=== PATIENT | female | born 1995 | race Caucasian/White ===

== ENCOUNTER → 2021-01-08 14:59 | Outpatient (CLI) | payer BC, SELFPAY ==
--- NOTE | ~2021-01-08 | US_ITS ---
EXAMINATION: US OB <= 14 weeks fetus DATE: 01/08/2021 15:19 INDICATION: Uncertain dates. TECHNIQUE: Real-time transabdominal pelvic ultrasound was performed. COMPARISON: None. FINDINGS: The uterus measures 9.3 x 5.6 x 8.5 cm. There is an intrauterine gestational sac. The placenta is po sterior. There is a single fetus in breech presentation. The crown rump length measures 6.6 cm, which correlates with an estimated gestational age of 12 weeks and 6 day(s) (+/-) 1 week(s) and 1 da y(s). heart motion is identified measuring 157 beats per minute (bpm) by M-mode Doppler. The ov lima are not visualized. There is no free fluid in the pelvis. IMPRESSION: 1. Single living intrauterine gestation with estimated date of delivery of 07/17/2021. Reviewed, dictated and finalized at location A. LFISH GROWER IMPRESSION: 1. Single living intrauterine gestation with estimated date of delivery of 06/21.
== END ==
PROVIDERS: Visit Provider Obstetrics & Gynecology
DX: Z36.9 Encounter for antenatal screening, unspecified (principal); Z3A.00 Weeks of gestation of pregnancy not specified
CPT/HCPCS: 76801

== ENCOUNTER → 2021-02-15 12:54 | Outpatient (CLI) | payer BC, SELFPAY ==
--- NOTE | ~2021-02-15 | US_ITS ---
EXAMINATION: US OB /maternal detail EXAM DATE: 02/15/2021 13:29 INDICATION: Z34.90 - Encounter for supervision of normal . Anatomy scan. 2nd trimester. TECHNIQUE: Pelvic obstetrical transabdominal sonogram was performed by a technologist. There are mu ltiple grayscale and Doppler images available for interpretation. Comparison is made to prior examina tion from 01/08/2021. FINDINGS: There is a single fetus identified in vertex presentation with a heart rate of 136 beats pe r minute. The placenta is located in the posterior position. There is no sonographic evidence of ret roplacental hemorrhage identified. Placental margin to internal cervical os distance is 6.5 cm. BIOMETRIC DATA: Biparietal diameter (BPD): 3.9 cm ----------------> 18 weeks 0 days. Head circumference (HC): 15.6 cm ----------------> 18 weeks 4 days. Abdominal circumference (AC): 13.1 cm ----------> 18 weeks 5 days. Femur length (FL): 2.6 cm --------------------------> 17 weeks 6 days. These measurements are concordant. HC/AC ratio is 1.19 (The 5th -- 95th percentile range is 1.08-1.27. Estimated weight is 233 g +/- 35 g. This is the 46th percentile when the currently reported cl inical gestation age 18 weeks 2 days, clinical estimated date of delivery (REHAN-OPE) 07/17/2021 is used . estimated gestational age based on measurements from this exam is also 18 weeks 2 days, with an estimated date of delivery (REHAN-AUA) 07/17. ANATOMIC SURVEY: The following anatomy is identified and is sonographically normal in appearance: Cisterna magna Nuchal fold CTL-spine Four-chamber heart Diaphragm Stomach Kidneys Bladder Three-vessel cord Cord insertion Extremities Nose/lips Following anatomy suboptimally visualized: Cardiac outflow tracts, cavum septum lucidum, cerebral ventricles, cerebellum. IMPRESSION: 1. Single fetus in vertex presentation with heart rate 136 beats per minute. 2. Estimated weight of 233 grams, 35th percentile using the currently reported clinical gestat ion age of 18 weeks 2 days, REHAN(OPE) 07/17. 3. Incomplete anatomic survey. Visualized anatomy normal. Reviewed, dictated and finalized at location A. SYSTEM ADMINISTRATOR IMPRESSION: 1. Single fetus in vertex presentation with heart rate 136 beats per minute. 2. Estimated weight of 233 grams, 35th percentile using the currently re ported clinical gestation age of 18 weeks 2 days, REHAN(OPE) 07/17. 3. Incomplete anatomic survey. Visualized anatomy normal.
== END ==
PROVIDERS: Visit Provider Obstetrics & Gynecology
DX: Z34.92 Encounter for supervision of normal pregnancy, unspecified, second trimester (principal); Z3A.18 18 weeks gestation of pregnancy
CPT/HCPCS: 76805

== ENCOUNTER → 2021-03-17 13:52 | Outpatient (CLI) | payer BC, SELFPAY ==
--- NOTE | ~2021-03-17 | US_ITS ---
US OB follow up DATE: 03/17/2021 14:39 INDICATION: Limited visualization of cardiac outflow tracts and head on 02/15/2021 obstetrical ultrasound anatomy examination TECHNIQUE: Limited real-time imaging targeting particularly the head and heart COMPARISON: 02/15/2021 obstetrical ultrasound 01/08/2021 obstetrical ultrasound FINDINGS: head is situated lower aspect of the uterus, limiting evaluation. No apparent c erebral ventriculomegaly. The cisterna magna and cerebellum appear normal. Four-chamber heart with normal-appearing left and right ventricular outflow tracts. heart rate 130 bpm. Posterior placenta with lower margin 6.8 cm above the cervix. Fetus is in vertex presentation, longit udinal lie. Subjectively normal amount of amniotic fluid. Biparietal diameter 5.12 cm; 21 weeks 4 days Head circumference 19.37 cm; 21 weeks 4 days Abdominal circumference 17.05 cm; 22 weeks Femur length 3.80 cm; 22 weeks 1 day Composite age by Hadlock formula based upon the current measurements would be 21 weeks 6 days +/- 1 w [place] 4 days with REHAN of 07/22/2021, compared to 07/17/2021 that determined on prior obstetrical ultrasoun d examination. weight is 468.6 +/- 70.3 g. Estimated weight GP: 19.0% Head circumference/abdominal circumference 1.14, within normal range of 1.06-1.23 Femur length/abdominal circumference 22.28, within normal range of 20.00-24.00 Femur length/head circumference 19.61, within normal range of 18.04-20.21 IMPRESSION: Normal four-chamber heart with normal left and right outflow tracts Head is situated in the lower uterine area, not optimally visualized, without apparent abnormality Reviewed, dictated and finalized at Location A. Reviewed, dictated and finalized at location A. BUYER IMPRESSION: Normal four-chamber heart with normal left and right outflow tracts Head is situated in the lower uterine area, not optimally visualized, without a pparent abnormality
== END ==
PROVIDERS: Visit Provider Obstetrics & Gynecology
DX: Z36.2 Encounter for other antenatal screening follow-up (principal); Z3A.21 21 weeks gestation of pregnancy
CPT/HCPCS: 76816

== ENCOUNTER 2021-04-22 13:14 | Outpatient (CLI) | payer BC, SELFPAY ==
[2021-04-22 19:11] LABS: Hematocrit 36.4 % (37.0-47.0); Hemoglobin 11.8 g/dL (12.0-15.0); Mean Corpuscular HGB Conc 32.4 g/dl (32-36); Mean Corpuscular Hemoglobin 29.6 pg (26-34); Mean Corpuscular Volume 91.5 fl (80-100); Mean Platelet Volume 10.9 fl (7.4-10.4); Platelet Count Result 304 k/mm3 (150-375); Red Blood Count 3.98 M/mm3 (4.2-5.4); Red Cell Distribution Width 13.3 % (11.5-14.5); White Blood Count 13.2 K/mm3 (4.5-10.0)
[2021-04-22 19:53] LABS: Glucose 1 Hour PP 50gm Dose 114 mg/dL
[2021-04-22 20:32] LABS: HIV 1/2 Ab P24 Ag Result Negative (Negative)
[2021-04-25 10:47] LABS: Rapid Plasma Reagin Non-Reactive (NonReactive)
== END 2021-04-22 13:15 | disposition home or self-care (01) ==
PROVIDERS: PCP Internal Medicine; Visit Provider Obstetrics & Gynecology
DX: Z34.90 Encounter for supervision of normal pregnancy, unspecified, unspecified trimester (principal); Z3A.00 Weeks of gestation of pregnancy not specified
CPT/HCPCS: 36415; 82947; 85027; 86592; 86703; G0432

== ENCOUNTER 2021-07-12 06:55 | Inpatient (IN) | payer BC, SELFPAY ==
[2021-07-12] VITALS (147 sets, daily range): BP systolic 79–148; BP diastolic 36–110; PULSE 46–106; RESP 16; TEMP 35.5–36.4; O2SAT 94–100; BMI 24.9
--- NOTE | 2021-07-12 07:35 | LDADM ---
This patient, Vane Grajeda, was admitted to Labor/Delivery/Recovery 105 on 07/12/21 at 06:55. Plans for labor, pain management and were discussed with patient. Patient/family oriented to hospital policies and general routines including ID bracelet, bed and alarms, visiting hours, pain management, procedures, bathroom and other care routines, personal items, smoking policy, room service/diet and guest tray routines, security routines, and visiting hours. Patient/Family are encouraged to report perceived risks to care and to ask questions if they do not understand what they are told or what they should do. See OBIX for further documentation.
[2021-07-12 08:03] LABS: Basophils Percent Auto 0.2 % (0.2-1.2); Eosinophils Absolute Auto 0.1 K/mm3 (0-0.3); Eosinophils Percent Auto 0.6 % (0-4.4); Hemoglobin 12.9 g/dL (12.0-15.0); Immature Granulocyte Absolute 0.08 K/mm3 (0.00-0.031); Immature Granulocyte Percent A 0.7 % (0-0.5); Lymphocytes Absolute Auto 1.82 K/mm3 (0.9-3.2); Lymphocytes Percent Auto 14.8 % (18.3-44.2); Mean Corpuscular HGB Conc 33.1 g/dl (32-36); Mean Corpuscular Hemoglobin 27.7 pg (26-34); Mean Corpuscular Volume 83.9 fl (80-100); Mean Platelet Volume 11.4 fl (7.4-10.4); Monocytes Absolute Auto 0.7 K/mm3 (0.1-0.6); Monocytes Percent Auto 5.6 % (2.6-8.5); Neutrophils Absolute Auto 9.6 K/mm3 (1.3-6.7); Neutrophils Percent Auto 78.1 % (45.5-73.1); Platelet Count Result 259 k/mm3 (150-375); Red Blood Count 4.65 M/mm3 (4.2-5.4); Red Cell Distribution Width 13.2 % (11.5-14.5); White Blood Count 12.3 K/mm3 (4.5-10.0)
[2021-07-12] MEDS: LACTATED RINGERS 1,000 ML 125 ML IV CONT ×2 (08:17→11:40)
[2021-07-12] MEDS: OXYTOCIN 30 UNITS/NS 500 ML 30 UNITS/500 ML BAG 6 UNITS IV CONT (08:18)
--- NOTE | 2021-07-12 10:02 | PM.OBPNLAB ---
Pain Control Date/time seen: 07/12/21 10:00 Patient seen at bedside. Doing well. SVE /-2. AROM performed, clear fluid. EFM category 1. [place] shows occasional contractions. Continue pitocin.
--- NOTE | 2021-07-12 10:02 | P.PNOB_ITS ---
Pain Control Date/time seen: 07/12/21 10:00 Patient seen at bedside. Doing well. SVE /- 2. AROM performed, clear fluid. EFM category 1. [place] shows occasional contractions. Continue pitocin.
--- NOTE | 2021-07-12 12:37 | WPDANESEPPF ---
Anes - Initial Pre Proc Eval Procedure: labor epidural Date/Time: 07/12/21 12:37 Surgeon: Josefa Babcock MD Pre Op Diagnosis: labor pain Pre Op Diagnosis: IOL Patient Data Age: 25 Gender: F Height: 1.65 m Weight: 68 kg Last Vital Signs Temp 35.5 C L 07/12/21 12:04 Pulse 54 L 07/12/21 12:37 BP 103/74 07/12/21 12:37 Pulse Ox 100 07/12/21 12:32 Allergies Allergy/AdvReac Type Severity Reaction Status Date / Time Penicillins Allergy Rash Verified 07/12/21 07:59 Sulfa (Sulfonamide Allergy Unknown Verified 07/07/21 14:20 Antibiotics) Home Medications Medication Instructions Recorded Confirmed Type docosahexaenoic acid 200 mg capsule 200 mg PO DAILY 12/29/20 06/17/21 History Laboratory Tests 07/12/21 07/12/21 07/12/21 07:17 07:17 07:17 WBC 12.3 K/mm3 H K/mm3 (4.5-10.0) RBC 4.65 M/mm3 M/mm3 (4.2-5.4) Hgb 12.9 g/dL g/dL (12.0-15.0) Hct 39.0 % % (37.0-47.0) MCV 83.9 fl fl (80-100) MCH 27.7 pg pg (26-34) MCHC 33.1 g/dl g/dl (32-36) RDW 13.2 % % (11.5-14.5) Plt Count 259 k/mm3 k/mm3 (150-375) MPV 11.4 fl H fl (7.4-10.4) Immature Gran % (Auto) 0.7 % H % (0-0.5) Neut % (Auto) 78.1 % H % (45.5-73.1) Lymph % (Auto) 14.8 % L % (18.3-44.2) Placer % (Auto) 5.6 % % (2.6-8.5) Eos % (Auto) 0.6 % % (0-4.4) Baso % (Auto) 0.2 % % (0.2-1.2) Lymph # (Auto) 1.82 K/mm3 K/mm3 (0.9-3.2) Placer # (Auto) 0.7 K/mm3 H K/mm3 (0.1-0.6) Eos # (Auto) 0.1 K/mm3 K/mm3 (0-0.3) Baso # (Auto) 0.0 K/mm3 K/mm3 (0.0-0.1) Abs Immat Gran (auto) 0.08 K/mm3 H K/mm3 (0.00-0.031) Absolute Neuts (auto) 9.6 K/mm3 H K/mm3 (1.3-6.7) Absolute Nucleated RBC 0.0 K/mm3 K/mm3 (0.0-0.012) Nucleated RBC % 0.0 % % (0.0-0.2) RPR Pending Blood Type A Positive Antibody Screen Negative Patient hx anesthesia problems: none Family hx anesthesia problems: none Results Review: All pre-operative results and documents have been reviewed as part of the pre-operative evaluation. [facility] Past Medical History Medical History Anemia Surgical History Surgical History [place] teeth removed Family History Family History Grandparent Carcinoma of colon Cerebrovascular accident Father Hypertension Social History Social History Smoking status: Never smoker Second hand tobacco smoke exposure: No Alcohol intake: former Drinks per week: 2 Alcohol use details: Not since Substance use: never Spiritual care concerns: No Anes - Eval Final PreProcedure Day of Procedure 07/12/21 12:37 Patient weight: normal Heart: regular rate and rhythm Lungs: clear to auscultation and normal air movement Airway: Mallampati scale class II Neurological: alert and oriented Last oral intake: >/= 8 hours ASA classification: II Emergent: no Anesthetic plan: proceed Anesthesia type and monitoring: regional epidural and standard monitoring Results Review: All pre-operative results and documents have been reviewed as part of the pre-operative evaluation. Informed Consent: The patient's anesthetic plan and its attendant risks and benefits were discussed with the patient/family/POA. Questions were solicited and answers provided to the satisfaction of the patient/family/POA.
--- NOTE | 2021-07-12 15:47 | PM.IMHP ---
H&P: HPI History of Present Illness Date/Time: 07/12/21 15:47 Patient is a 25-year-old LMP 11/01/2020 currently 39 weeks 2 day gestation with REHAN 07/17/2021 who presented to labor and delivery for scheduled elective induction of labor. Patient is dated by an ultrasound on 01/08/2021 at 12 weeks gestation. In general, patient reports feeling well today without complaints. Patient reports occasional contractions. Denies any vaginal bleeding or leakage of fluid. Reports good movement. Chief Complaint: IUP at 39w2d Elective induction of labor Review of Systems Review of Systems: All systems reviewed & are unremarkable except as noted in HPI and below Constitutional: Constitutional: Reports as per HPI, Reports no additional constitutional complaints, Denies chills, Denies fever(s), Denies headache(s) and Denies night sweats Eyes: Eyes: Reports as per HPI and Reports no additional eye complaints ENT: Reports system reviewed and no additional complaints, except as documented, Reports as per HPI, Reports Normal hearing present and Denies headache(s) Cardiovascular: Cardiovascular: Reports as per HPI, Reports no additional cardiovascular complaints, Denies chest pain and Denies dyspnea Respiratory: Respiratory: Reports as per HPI, Reports no additional respiratory complaints, Denies cough and Denies dyspnea Gastrointestinal: Gastrointestinal: Reports as per HPI, Reports no additional gastrointestinal complaints, Denies abdominal pain, Denies change in bowel habits, Denies change in stool character, Denies nausea and Denies vomiting Genitourinary: Genitourinary: Reports no additional female genitourinary complaints, Reports as per HPI, Denies abnormal vaginal bleeding, Denies genital lesions, Denies hot flashes, Denies dyspareunia, Denies pelvic pain, Denies sexual dysfunction, Denies urinary incontinence, Denies vaginal discharge, Denies vaginal dryness and Denies vaginal odor Musculoskeletal: Musculoskeletal: Reports no additional musculoskeletal complaints and Reports as per HPI Integumentary/Breasts: Skin/Breast: Reports system reviewed and no additional complaints, except as docu, Reports as per HPI, Denies breast pain and Denies nipple discharge Neurologic: Reports system reviewed and no additional complaints, except as documented, Reports as per HPI, Reports Normal hearing present and Denies headache(s) Psychiatric: Psychiatric: Reports no additional psychiatric complaints, Reports as per HPI, Denies anxiety and Denies depression Endocrine: Endocrine: Reports no additional endocrine complaints and Reports as per HPI Hematologic/Lymphatic: Hematologic/Lymphatic: Reports no additional hematologic/lymphatic complaints and Reports as per HPI Allergic/Immunologic: Allergic/Immunologic: Reports no additional allergic/immunologic complaints and Reports as per HPI PMFSH Past Medical History Medical History Anemia Surgical History Surgical History [place] teeth removed Family History Family History Grandparent Carcinoma of colon Cerebrovascular accident Father Hypertension Social History Social History Smoking status: Never smoker Second hand tobacco smoke exposure: No Alcohol intake: former Drinks per week: 2 Alcohol use details: Not since Substance use: never Spiritual care concerns: No Meds Home Medications and Allergies Home Medications Medication Instructions Recorded Confirmed Type docosahexaenoic acid 200 mg capsule 200 mg PO DAILY 12/29/20 06/17/21 History Allergies Allergy/AdvReac Type Severity Reaction Status Date / Time Penicillins Allergy Rash Verified 07/12/21 07:59 Sulfa (Sulfonamide Allergy Unknown Verified 07/07/21 14:20 Antibiotics) Vital Sign
--- NOTE | 2021-07-12 15:48 | PM.OBPRVD ---
OB - Delivery Note Procedure Delivery date: 07/12/21 Procedure: The patient is a 25-year-old now who presented to labor and delivery on the morning of 07/12/2021 at 39w2d gestation for scheduled elective induction of labor. Patient was admitted to labor and delivery where induction was started with Pitocin. Initial cervical exam was approximately 2 cm dilated. Pitocin was slowly titrated throughout the morning and afternoon. Artificial rupture membranes was performed at 9:57 a.m. Clear amniotic fluid was noted. Pitocin was continued. Patient became uncomfortable and requested an epidural for pain management which was placed without difficulty. Patient made progressive cervical change and was noted to be fully dilated at 2:33 p.m. Patient was encouraged to push and found to be pushing well. Patient was prepped and draped for delivery. At 3:18 p.m., patient delivered infant head atraumatically and without difficulty in VER[place] presentation. Occiput restituted to maternal right side. With subsequent push, the 's neck, shoulders, and rest of body delivered without difficulty. Infant's nose and mouth were suctioned with bulb suction. was placed on maternal abdomen where care was assumed by awaiting nursing staff. Moderate bleeding from a periurethral laceration was noted. This laceration was repaired with 3-0 Vicryl in the usual fashion. Delayed cord clamping was performed during this time for approximately 2 minutes. Infant voided spontaneously. The cord was clamped and cut. A segment of cord was collected for cord gases. Cord blood was collected. The placenta was delivered spontaneously and intact. Uterine fundus was noted to be firm with massage. Upon further inspection, in addition to the periurethral laceration previous identified, a first-degree perineal laceration was also noted. This laceration was repaired with 2-0 Vicryl in the usual fashion. Straight catheterization was performed with return of a small amount of clear urine. Excellent hemostasis was noted. Estimated blood loss for entire delivery was 100 cc. Infant was a live-born female infant, apgars 7/9, weighing 6 lb 15 oz. Both mother and baby doing well at end of delivery. Events: Elective Induction of Labor Induction method: Per Pitocin Protocol Delivery augmentation: Rupture of Membranes Delivery monitor: External FHT and External Uterine Route of delivery: Laceration Description: Periurethral and Perineal - 1st Degree Delivery repair: vicryl (2-0 and 3-0 vicryl) Specimen: Yes (cord blood and cord gases) Quantitative Blood Loss (ml): 100 Anesthesia type: Epidural Disposition: Floor Complications: No immediate complications Baby Date of : 07/12/21 Time of : 15:18 Weeks of gestation at delivery: 39 (39.2) Infant gender: Female Weight (pounds): 6 Weight (ounces): 15 presentation: vertex position: Right Occiput Anterior Placenta delivery description: Spontaneous Cord Vessel Description: 3 Vessels and Delayed Cord Clamping score one minute: 7 score five minutes: 9 AMG Delivery Billing Delivery Delivery: Delivery Charge
[2021-07-12] MEDS: OXYTOCIN 30 UNITS/NS 500 ML 30 UNITS/500 ML BAG 125 UNITS IV CONT (16:28)
[2021-07-12] MEDS: BENZOCAINE 20% AER SPR (*SP) 56 GM CAN 1 SPRAY TOPICAL (17:54)
[2021-07-12] MEDS: WITCH HAZEL 40 PADS 1 PAD TOPICAL (17:54)
[2021-07-12] MEDS: IBUPROFEN 600 MG TABLET PO (20:58)
[2021-07-13 07:04] LABS: Hematocrit 35.5 % (37.0-47.0); Hemoglobin 11.3 g/dL (12.0-15.0)
[2021-07-13 07:50] VITALS: BP 124/79; PULSE 65; RESP 18; TEMP 37.2; O2SAT 100
--- NOTE | 2021-07-13 08:40 | P.PNOB_ITS ---
OB - PN: Subj Subjective Date/time seen: 07/13/21 8:30 AM Doing well. Denies significant cramping or pain. Minimal- moderate lochia. Ambulating without difficulty. Voiding well. OB - PN: Obj Data Labs CBC & Chem 7: 07/13/21 03:00 Labs: Laboratory Results - last 24 hr 07/13/21 03:00 Hgb 11.3 L Hct 35.5 L OB - PN A/P Assessment and Plan (1) Normal spontaneous vaginal delivery: Code(s): O80 - Encounter for full-term uncomplicated delivery Status: Acute Assessment and Plan: PPD#1 doing well continue routine care pt requesting dc today if infant cleared emergency precautions reviewed f/u in office in 4-6 weeks Time Spent With Patient Time: Total time spent is greater than 50% in coordination of care (as documented) at patient's floor/unit and/or counseling patient: Exam Const: General: cooperative, healthy appearing, comfortable and no acute distress GI: Inspection: non-distended GI Palp: Yes Soft to palpation and No Tenderness to palpation present (GI) Other: fundus firm below umbilicus Extrem: Right lower extremity: no edema Left lower extremity: no edema Other: no calf tenderness
[2021-07-13] MEDS: MULTIVIT/MIN/PREN/FOL AC/IRON TABLET 1 TAB PO (09:22)
[2021-07-13] MEDS: DOCUSATE SODIUM 100 MG CAPSULE PO ×2 (09:22→17:39)
[2021-07-13] MEDS: IBUPROFEN 600 MG TABLET PO ×2 (09:22→17:39)
[2021-07-13 09:30] VITALS: PULSE 65; RESP 18; O2SAT 100
--- NOTE | 2021-07-13 11:07 | PM.OBDSVD ---
DS: Admitting Diagnosis Discharge Date 07/13/21 Admitting Diagnosis IUP at 39w2d Elective IOL OB - DS: Summary OB Procedures : None OB Procedures Intrapartum: Spontaneous Vag Delivery OB Procedures: : None Time Spent with Patient Time attestation: Total time spent providing and/or coordinating discharge services: DS: Data Data Completed and Pending Labs on day of discharge: Labs from last 24 hours 07/13/21 03:00 Hgb 11.3 L Hct 35.5 L Discharge Plan Discharge Attending physician on discharge: Josefa Babcock Discharging Clinician: Josefa Babcock Anticipated Discharge Date/Time: 07/13/21 16:00 Patient Disposition: Home, Self-Care Activity: pelvic rest Diet: regular Discharge Instructions: Call office ([phone]) to schedule a visit in 4-6 weeks. You may take Ibuprofen 600mg every 6 hours as needed for pain. Pain medication may make you constipated. It may be helpful to take an [id number] stool softener, such as Colace and/or Senokot, along with the pain medication to help lessen constipation. Call office or go to ED for pain not controlled with medication, headache, chest pain, shortness of breath, fever, chills, persistent nausea or vomiting, severe abdominal pain, heavy vaginal bleeding >2 pads/hour, foul vaginal discharge or odor, or problems with your breasts. Patient Instructions: Antibiotic Form Stand Alone Forms: General Discharge Information Follow-up/Referrals: Josefa Babcock MD [Physician] - Discharge Medications: Continued DHA 200 mg capsule 200 mg PO DAILY Date of admission: 07/12/21 06:55 Primary Care Provider: UriahBethel Admitting Provider: Josefa Babcock Attending physician on admission: Josefa Babcock Condition: Stable
--- NOTE | 2021-07-13 11:31 | PC.NURSE ---
[id number] Introductions were made, then consulted with patient to assess needs related to . Mother led the conversation with her experience feeding her so far. Mother works well with her with encouragement and education. had just spit up copious amounts fluid. Encouraged understanding of the benefits of skin to skin (unwrapping infant and placing vertically on her chest), responsive feeding and how to watch for early feeding signs, frequency of feeding on demand about every 8-12 times in 24 hours (every 2-3 hours), milk production, duration of feeding, signs of adequate intake/output and how to record on the feeding sheet. Reviewed positioning and ear, shoulder, hip alignment, supporting the breast, asymmetrical latch (off-center), and leading with the chin with a big open side gape. Demonstrated stimulating infant to wake, mother returned demonstration of understanding of hand expressing colostrum and finger feeding to . is sleepy and reluctant to breastfeed and is clamping jaw. Reviewed good handwashing when or touching the breast/nipples to prevent infection. Resources used to facilitate learning were used with the visual handouts/ tool/mom and baby guide. Mother voiced understanding of responsive feedings, stimulating with skin to skin, hand expressed colostrum, touch, talking to to encourage if it has been 2 -3 hours since the start of the last , to call if infant does not latch or there is discomfort with . Reported to the primary RN. [id number] is sleepy and no feeding cues visualized. is skin to skin and mother has been hand expressing colostrum, then finger feeding to . Mother is going to get some water and food, then plans to attempt when feeding cues are seen or approximately around noon. Parents voiced understanding to call for assistance. Reported to the primary RN.
[2021-07-13 12:14] VITALS: BP 110/75; PULSE 71; RESP 18; TEMP 36.5; O2SAT 99
[2021-07-13 13:51] LABS: Rapid Plasma Reagin Non-Reactive (NonReactive)
--- NOTE | 2021-07-13 14:30 | WPDANLDPN2 ---
Anes-Prog Note L&D Date/Time: 07/13/21 14:30 Comfortable throughout: labor and delivery Neuraxial method: epidural Epidural/Spinal procedure site: clean & non-tender Neuro status: Neuro function grossly intact. Cardiovascular status: normal Respiratory status: normal Airway patency: baseline Mental status: baseline Post-Op hydration status: normal Vital Signs: Last Vital Signs Temp 36.5 C 07/13/21 12:14 Pulse 71 07/13/21 12:14 Resp 18 07/13/21 12:14 BP 110/75 07/13/21 12:14 Pulse Ox 99 07/13/21 12:14 O2 Del Method Room Air 07/13/21 09:30 Pain score (VAS): 03/01 I/O: Intake & Output 07/12/21 07/13/21 07/13/21 23:59 07:59 15:59 Intake Total 2000 500 Output Total 40 Balance 1960 500 Post-procedural complaints: none Patient feedback: Patient satisfied with anesthetic care.
[2021-07-13 16:00] VITALS: PULSE 71; RESP 18; O2SAT 99
[2021-07-13 20:30] VITALS: BP 129/77; PULSE 82; RESP 16; TEMP 36.3
[2021-07-14] MEDS: IBUPROFEN 600 MG TABLET PO (07:17)
[2021-07-14] MEDS: MULTIVIT/MIN/PREN/FOL AC/IRON TABLET 1 TAB PO (07:18)
[2021-07-14] MEDS: DOCUSATE SODIUM 100 MG CAPSULE PO (07:18)
[2021-07-14 07:30] VITALS: PULSE 82; RESP 16; O2SAT 99
[2021-07-14 07:35] VITALS: BP 125/84; PULSE 93; RESP 18; TEMP 36.2; O2SAT 100
--- NOTE | 2021-07-14 08:33 | PM.OBPNVD ---
OB - PN: Subj Subjective Date/time seen: 07/14/21 08:33 Patient doing well. Minimal lochia. Denies any significant pain. Ambulating without difficulty. Voiding well. OB - PN: Obj Data Labs CBC & Chem 7: 07/13/21 03:00 Labs: Laboratory Results - last 24 hr 07/12/21 07:17 RPR Non-reactive OB - PN A/P Assessment and Plan (1) Normal spontaneous vaginal delivery: Code(s): O80 - Encounter for full-term uncomplicated delivery Status: Acute Assessment and Plan: PPD#2 doing well dc home in stable condition emergency precautions reviewed Time Spent With Patient Time: Total time spent is greater than 50% in coordination of care (as documented) at patient's floor/unit and/or counseling patient: Exam Const: General: cooperative, healthy appearing, comfortable and no acute distress GI: Inspection: non-distended GI Palp: No abdominal tenderness and Yes Soft to palpation Extrem: Right lower extremity: no edema Left lower extremity: no edema Other: no calf tenderness
[2021-07-15 09:28] VITALS: BP 118/68; PULSE 89; RESP 20; TEMP 36.7; O2SAT 100
== END 2021-07-14 11:30 | disposition home or self-care (01) | DRG 807 ==
LOC: ANHLDR 06:58 → ANHOB2 18:38
PROVIDERS: Admitting Provider Student in an Organized Health Care Education/Training Program; PCP Internal Medicine; Visit Provider Student in an Organized Health Care Education/Training Program
DX: O76 Abnormality in fetal heart rate and rhythm complicating labor and delivery (principal); Z37.0 Single live birth; O70.0 First degree perineal laceration during delivery; O71.82 Other specified trauma to perineum and vulva; Z3A.39 39 weeks gestation of pregnancy
CPT/HCPCS: 36415; 85014; 85018; 85025; 86592; 86850; 86900; 86901; A9270; J2590; J2795; J7120

== ENCOUNTER 2022-05-19 14:15 | Outpatient (CLI) | payer BC, SELFPAY ==
[2022-05-19 18:49] LABS: Alanine Aminotransferase 19 U/L (6-35); Alkaline Phosphatase 99 U/L (38-126); Anion Gap 6 mmol/L (8-16); Aspartate Amino Transferase 52 U/L (14-36); Bilirubin,Total 0.4 mg/dL (0.2-1.3); Blood Urea Nitrogen 16 mg/dL (7-17); Calcium 9.7 mg/dL (8.4-10.2); Carbon Dioxide 33 mmol/L (22-30); Chloride 100 mmol/L (98-107); Cholesterol 200 mg/dL (0-200); Estimated Glomerular Filt Rate > 60; Glucose 92 mg/dL (65-110); HDL Direct 82 mg/dL; Potassium 3.9 mmol/L (3.4-5.0); Sodium 139 mmol/L (137-145); Triglycerides 124 mg/dL (<150)
[2022-05-19 19:00] LABS: LDL Cholesterol Direct 75 mg/dL
[2022-05-19 19:20] LABS: Hematocrit 43.7 % (37.0-47.0); Hemoglobin 13.9 g/dL (12.0-15.0); Mean Corpuscular HGB Conc 31.8 g/dl (32-36); Mean Corpuscular Volume 84.9 fl (80-100); Mean Platelet Volume 10.3 fl (7.4-10.4); Platelet Count Result 343 k/mm3 (150-375); Red Blood Count 5.15 M/mm3 (4.2-5.4); Red Cell Distribution Width 12.8 % (11.5-14.5); White Blood Count 9.5 K/mm3 (4.5-10.0)
== END 2022-05-19 14:16 | disposition home or self-care (01) ==
LOC: ANHBWCLAB 14:16
PROVIDERS: PCP Family Medicine; Visit Provider Family Medicine
DX: Z00.00 Encounter for general adult medical examination without abnormal findings (principal); D64.9 Anemia, unspecified
CPT/HCPCS: 36415; 80053; 80061; 85027

== ENCOUNTER 2023-02-22 18:07 | Emergency (ER) | payer BC, SELFPAY ==
[2023-02-22 18:15] VITALS: BP 133/91; PULSE 87; RESP 18; TEMP 36.3; O2SAT 100
--- NOTE | 2023-02-22 18:21 | ED.GENADULT ---
HPI - General Adult General Chief complaint: Urogenital-Female Stated complaint: Urinary Problem Source: patient, RN notes reviewed and old records reviewed Mode of arrival: ambulatory Limitations: no limitations History of Present Illness HPI narrative: a year-old female presents to [facility] with complaint burning with urination, urinary frequency, urinary urgency, hematuria, and feeling hot/cold this started this a.m., but has worsened over last 2 hours. MD complaint: UTI symptoms Onset (ago): hour(s) (10) Related Data Allergies Allergy/AdvReac Type Severity Reaction Status Date / Time mushroom Allergy Unknown Unknown Verified 05/19/22 13:47 Penicillins Allergy Rash Verified 08/25/21 14:12 Sulfa (Sulfonamide Allergy Unknown Verified 08/25/21 14:12 Antibiotics) Review of Systems Constitutional: Constitutional: Reports no additional constitutional complaints, Denies body ache(s), Denies chills, Denies fatigue, Denies fever(s) and Denies headache(s) Eyes: Eyes: Reports no additional eye complaints and Denies blurry vision ENT: Reports system reviewed and no additional complaints, except as documented, Denies vertigo, Denies dizziness, Denies ear discharge, Denies otalgia, Denies facial pain, Denies headache(s), Denies nasal congestion, Denies nasal discharge, Denies sinus pain, Denies sinus pressure and Denies sore throat Cardiovascular: Cardiovascular: Reports no additional cardiovascular complaints, Denies chest pain, Denies chest pain at rest, Denies rapid heart rate and Denies dyspnea Respiratory: Respiratory: Reports no additional respiratory complaints, Denies chest congestion, Denies cough, Denies pain on inspiration, Denies pain with cough and Denies dyspnea Gastrointestinal: Gastrointestinal: Denies abdominal pain, Denies diarrhea, Denies nausea and Denies vomiting Genitourinary: Genitourinary: Reports hematuria, Reports nocturia, Reports dysuria, Denies pelvic pain, Denies sexual dysfunction, Denies flank pain, Denies urinary incontinence, Denies urinary hesitancy, Reports urinary urgency, Denies vaginal discharge, Denies vaginal dryness and Denies vaginal pruritus Integumentary/Breasts: Skin/Breast: Denies rash Neurologic: Reports system reviewed and no additional complaints, except as documented, Denies vertigo, Denies dizziness and Denies headache(s) Endocrine: Endocrine: Denies fatigue PMFSH Past Medical History Medical History Anemia History of vaginal delivery Surgical History Surgical History [place] teeth removed Family History Family History Grandparent Carcinoma of colon Cerebrovascular accident Father Hypertension Social History Social History Smoking status: Never smoker Second hand tobacco smoke exposure: No Alcohol intake: former Drinks per week: 2 Alcohol use details: wine /beer Substance use: never Lack of Transportation: No Lack of Food: Never True Current Housing: I Have Housing Concerned About Future Housing: No Difficulty Paying Gas/Electric Bills: No Difficulty Paying for Meds: No Currently Unemployed: No Education: Master's Degree or Higher Difficulty w/ Childcare or Family Care: No Living arrangements: with family Gender identity (if verbalized by the patient): Female Sexual Orientation (if Verbalized by the Patient): Straight or Heterosexual Spiritual care concerns: No Agree to blood products: Yes Comments At the time of my signature, I reviewed and agree with the nursing past medical, surgical, social, and family history. There is no relevant family history pertinent to the patient complaint. Exam Const: General: cooperative, healthy appearing, no acute distress and well nourished Nutritional Appea
== END 2023-02-22 18:31 | disposition home or self-care (01) ==
PROVIDERS: Emergency Provider Registered Nurse; PCP Family Medicine
DX: N30.01 Acute cystitis with hematuria (principal); B96.20 Unspecified Escherichia coli [E. coli] as the cause of diseases classified elsewhere
CPT/HCPCS: 81003; 87077; 87086; 87186; 99213; G0463

== ENCOUNTER 2023-06-01 08:50 | Outpatient (CLI) | payer BC, SELFPAY ==
[2023-06-01 18:39] LABS: Hematocrit 42.9 % (37.0-47.0); Hemoglobin 13.2 g/dL (12.0-15.0); Mean Corpuscular HGB Conc 30.8 g/dl (32-36); Mean Corpuscular Hemoglobin 27.2 pg (26-34); Mean Corpuscular Volume 88.3 fl (80-100); Mean Platelet Volume 10.5 fl (7.4-10.4); Platelet Count Result 283 k/mm3 (150-375); Red Blood Count 4.86 M/mm3 (4.2-5.4); Red Cell Distribution Width 13.2 % (11.5-14.5); White Blood Count 6.3 K/mm3 (4.5-10.0)
[2023-06-01 19:11] LABS: Alanine Aminotransferase 16 U/L (6-35); Albumin Level 4.9 g/dL (3.5-5.1); Alkaline Phosphatase 44 U/L (38-126); Anion Gap 8 mmol/L (4-12); Aspartate Amino Transferase 86 U/L (14-36); Bilirubin,Total 0.6 mg/dL (0.2-1.3); Blood Urea Nitrogen 10 mg/dL (7-17); Calcium 9.7 mg/dL (8.4-10.2); Carbon Dioxide 25 mmol/L (22-30); Chloride 107 mmol/L (98-107); Cholesterol 155 mg/dL (0-200); Estimated Glomerular Filt Rate > 60; Glucose 91 mg/dL (65-110); HDL Direct 74 mg/dL; Potassium 4.2 mmol/L (3.4-5.0); Sodium 140 mmol/L (137-145); Triglycerides 53 mg/dL (<150)
[2023-06-01 19:21] LABS: LDL Cholesterol Direct 64 mg/dL
== END 2023-06-01 08:51 | disposition home or self-care (01) ==
LOC: ANHBWCLAB 08:51
PROVIDERS: PCP Nurse Practitioner Adult Health; Visit Provider Nurse Practitioner Adult Health
DX: Z13.9 Encounter for screening, unspecified (principal)
CPT/HCPCS: 36415; 80053; 80061; 84443; 85027

== ENCOUNTER 2023-10-06 10:19 | Outpatient (CLI) | payer BC, SELFPAY ==
--- NOTE | ~2023-10-06 | US_ITS ---
EXAMINATION: US OB <= 14 weeks fetus DATE: 10/06/2023 10:37 INDICATION: Amenorrhea TECHNIQUE: Real-time pelvic ultrasound utilizing both a transvaginal and transabdominal probe was pe rformed. The interpreting radiologist was not present for the study. COMPARISON: None. FINDINGS: The uterus measures 7.0 x 7.6 x 5.9 cm. There is an intrauterine gestational sac. A yolk sac and fet al pole are identified. The crown rump length measures 2.1 cm, which correlates with an estimated ges tational age of 8 weeks and 5 days. heart motion is identified measuring 160 beats per minute ( bpm) by M-mode Doppler. The right ovary measures 1.9 x 2.1 x 1.7 cm. The left ovary measures 3.6 x 2.9 x 2.0 cm. 2.3 cm likel y corpus luteum cyst at the left ovary. There is no free fluid in the pelvis. IMPRESSION: 1. Single living fetus with heart rate of 160 bpm. 2. Gestational age by ultrasound of 8 weeks 5 day(s) +/- 5 day(s) with ultrasound estimated date of delivery (REHAN) of 05/12/2024. Reviewed, dictated and finalized at location A. IMPRESSION: 1. Single living fetus with heart rate of 160 bpm. 2. Gestational age by ultrasound of 8 weeks 5 day(s) +/- 5 day(s) with ultraso und estimated date of delivery (REHAN) of 05/12/2024.
== END 2023-10-06 10:20 ==
LOC: GOSHIMG 10:20
PROVIDERS: PCP Obstetrics & Gynecology; Visit Provider Obstetrics & Gynecology
DX: N91.2 Amenorrhea, unspecified (principal); Z3A.08 8 weeks gestation of pregnancy
CPT/HCPCS: 76801

== ENCOUNTER 2024-05-05 06:23 | Inpatient (IN) | payer BC, SELFPAY ==
[2024-05-05] VITALS (34 sets, daily range): BP systolic 105–138; BP diastolic 40–110; PULSE 58–187; RESP 16–18; TEMP 36.6–36.7; O2SAT 100; BMI 26.2
--- OUTSIDE RECORDS SUMMARY | 2024-05-05 06:28 | XMS_ITS | Encounter Summary ---
Author Organization [facility] Address [facility] [place] [address] Care Team Providers Care Grant Manager Name Role Phone Bethel Kruse MD Primary Care Provider [phone] Encounter Details Date Type Department Care Team (Latest Contact Info) Description 11/19/2021 Linksifyhart Message Enc [facility] Multispecialty Care - [place] [address] [address] [place] [address] Bethel Kruse MD [address] [place] [id number] Overdue for annual physical Social History Tobacco Use Types Packs/Day Years Used Date Smoking Tobacco: Never Smokeless Tobacco: Never Comments:by Dr Kruse Alcohol Use Standard Drinks/Week Comments Yes 0 (1 standard drink = 0.6 oz pur e alcohol) socially PHQ-2 Answer Date Recorded PHQ-2 Score - If the patient scores above 3, please move on to questions 3-9 0 06/05/2020 Comments No Sex and Gender Information Value Date Recorded Sex Assigned at Not on file Legal Sex Female 2:28 PM CDT Gender Identity Not on file Sexual Orientation Not on file documented as of this encounter Plan of Treatment Not on file documented as of this encounter Visit Diagnoses Not on filedocumented in this encounter Additional Health Concerns Assessment Noted Time PHQ-9 Depression Total Score: 1 06/06/19 21 8:31 AM CDT documented as of this encounter Care Teams Grant Manager Relationship Specialty Start Date End Date Bethel Kruse MD [address] [place] [address] [place] [address] PCP - General INTERNAL MEDICINE 06/05/20 documented as of this encounter
--- OUTSIDE RECORDS SUMMARY | 2024-05-05 06:29 | XMS_ITS | Referral Summary ---
Author Organization [facility] Address [address] [place] [address] Care Team Providers Care Steamship Agent Name Role Phone Rigoberto Velazco MD Primary Care Provider [phone] Allergies Active Allergy Reactions Criticality Noted Date Comments Penicillins Rash Medium 03/11/2011 As Reaction: Rash, Sulfa (Sulfonamide Antibiotics) Rash Reaction: Rash, Sulfasalazine Rash Medium 03/11/2011 Medications norethindrone-et hin estradiol (NECON 0.5/35, 28,) 0.5-35 mg-mcg per tablet Take 1 tablet by mouth. Active Active Problems Problem Noted Date Diagnosed Date Anemia 09/02/2014 Overview (05/27/2016): Anemia Unspecified disorder of mens truation and other abnormal bleeding from female genital tract 03/15/2011 Overview (09/29/2016): Overview: 15 yo female with history of heavy menses soiling clothes since December 2010, following nose injury. Pt with symptoms of anemia and parent reported iron of 2 and hgb of 6.6 at that time. Heavy menses and anemia symptoms continued through January 2011 - started on iron supplementation at that time. Seen in ER for heavy menses and referred to adolescent clinic on 03/11 where h/h was 12 and 42, pt/ptt normal. No family history of bleeding abnormalities, and bleeding work-up done here was normal. Started on [id number]-xfpdae Lo per PMD in 02/2011, then changed to Qlsvv-khf-xrnxcs in 04/2011 for insufficient control of menses. Bleeding has since been well controlled, but patient clement noted nausea for first week of each pill pack x 3 months.Change OCP to Ortho Cept - desogestrel-ethinyl estradiol 0.15-30 MG-MCG tablet. This was accomplished in August 2011. Menses then were regular until December 2011 when there seemed to be no relation to pill taking and menstruation. Patient denies missing any pills. In January began pills about January 29 but menstruated for about 1 week after new pill david begun and then again two weeks after this. Denies drugs, missing pills, vaginal discharge, vomiting, diarrhea, illness (except for cold for which patient took OTC cold medications). 1) Pelvic exam: Normal 2) Chlamydia-gc normal 3) HCG negative 4) Began LoOvral LoOvral has done well. Regular periods. No excess bleeding. Happy. Refilled x 12. Immunizations Immunization Administration Dates Next Due DTaP 09/23/1998, 6,06/23/1994,06/09,01/27/1994 Hep A, Adult 09/10/2007,09/22/2006 Hep B Vaccine 12/30/2003,06/23/1994 Hep B, Adolescent or Pediatric 12/16/2003 HiB 02/24/1995,06/23/1994,04/11/1994 Hib (PRP-T) 01/27/1994 IPV 09/23/1998, 6,04/11/1994,01/27 Influenza, Live, Intranasal, Quadrivalent 10/18/2011,11/17/2010 MMR 09/23/1998,02/24/1995 Meningococcal ACWY, Unspecified 03/30/2009 Meningococcal MCV4P (Menactra) 09/22/2006 TD Preservative Free 08/10/2005 Tdap 09/29/2016 Varicella 02/24/1995 Social History Tobacco Use Types Packs/Day Years Used Date Smoking Tobacco: Never Smokeless Tobacco: Never Comments No Sex and Gender Information Value Date Recorded Sex Assigned at Not on file 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 [employer] [facility] Care Teams Steamship Agent Relationship Specialty Start Date End Date Rigoberto Velazco MD PCP - General 09/02/14
--- OUTSIDE RECORDS SUMMARY | 2024-05-05 06:29 | XMS_ITS | Clinical Summary ---
Author Organization [facility] Address [facility] [place] [address] Care Team Providers Care Automotive Porter Name Role Phone Bethel Kruse MD Primary Care Provider [phone] Allergies Active Allergy Reactions Criticality Noted Date Comments Penicillins Rash Medium 03/11/2011 As Reaction: Rash, Sulfasalazine Rash Medium 03/11/2011 Medications No known medications Active Problems No known active problems Immunizations Name Administration Dates Next Due Dtap (Generic) 09/23/1998, 6,06/23/1994,06/09,01/27/1994 Fluzone 6 Months+ Quad (0.5 mL Prefilled Syringe) 07/03/2020 Hepatitis A (Generic) 09/10/2007,09/22/2006 Hepatitis B (Generic: Adult) 12/30/2003,06/23/18 95 Hepatitis B Pediatric 12/16/2003 Hib (Generic) 02/24/1995,06/23/1994,04/11/1994 Hib Vaccine, Prp-T 01/27/1994 Influenza (FluMist) 10/18/2011,11/17/2010 MMR (Generic) 09/23/1998,02/24/1995 Meningococcal Vac A,C,Y,W-135 Sc 03/30/2009,04/2006 PFIZER COVID-19 (ORIGINAL FO RMULATION, PURPLE CAP) mRNA, LNP-S, PF, 30 MCG/0.3 ML DOSE 05/30/2020,05/07/2020 Polio Ipv (Generic) 09/23/1998, 6,04/11/1994,01/27 Td (Tenivac) preservative free 08/10/2005 Tdap (Generic) 09/29/2016 Varicella Vaccine 02/24/1995 Family History Medical History Relation Comments Hypertension Father pancreatic cancer Maternal Grandfather Colon Cancer Paternal Grandfather Hypertension Sister Relation Status Comments Father Alive Maternal Grandfather Mother Alive Paternal Grandfather Sister Alive Social History Tobacco Use Types Packs/Day Years Used Date Smoking Tobacco: Never Smokeless Tobacco: Never Tobacco Cessation:Counseling Given: Yes Comments:by Dr Kruse Alcohol Use Standard Drinks/Week [...] Sign Reading Time Taken Comments Blood Pressure 107/68 06/05/2020 7:13 AM CDT Pulse 87 06/05/2020 7:13 AM CDT Temperature 36.8 C (98.2 F) 06/05/2020 7:13 AM CDT Respiratory Rate 18 06/05/2020 7:13 AM CDT Oxygen Saturation 100% 06/05/2020 7:13 AM CDT Inhaled Oxygen Concentration - - Weight 61.2 kg (135 lb) 06/05/2020 7:13 AM CDT Height 165.1 cm (5' 5 ) 06/05/2020 7:13 AM CDT Body Mass Index 22.47 06/05/2020 7:13 AM CDT Plan of Treatment Health Maintenance Due Date Last Done Comments Cervical Cancer Screening Pap Smear (Age 30 to 64) Every 3 Years 1993 Hepatitis B Vaccines (4 of 4 - 4-dose series) 02/10/2004 12/30/2003, 12/16/2003, 06/23/1994 Annual Physical 06/05/2021 06/05/2020 COVID-19 Vaccine ( season) 2023 05/30/2020, 05/07/2020 Influenza Adult (#1) 2023 07/03/2020, 10/18/2011, 11/17/2010 Cervical Cancer Screening Pap with HPV Testing (Age 30 to 64) Every 5 Years 12/09/2023 Cervical Cancer Screening with HPV 12/09/2023 DTaP, Tdap and Td Vaccines (6 - Td or Tdap) 09/29/2026 09/29/2016, 08/10/2005, 09/23/1998, Additional history exists Meningococcal Vaccine Aged Out 03/30/2009, 007 No longer eligible based on patient's age to complete this topic Hepatitis C Completed 06/05/2020 HPV Vaccines Aged Out No longer eligi ble based on patient's age to complete this topic Meningococcal B Vaccine Aged Out No l onger eligible based on patient's age to complete this topic Pneumococcal Vaccine: Pediatrics (0 to 5 Years) and At-Risk Patients (6 to 64 Years) Aged Out No longer eligible based on patient's age to complete this topic RSV Immunizations Under 20 Months Aged Out No longer eligible based on patient's age to complete this topic Procedures Procedure Name Priority Date/Time Associated Diagnosis Comments HEPATITIS C ANTIBODY Routine 06/05/2020 8:03 AM CDT Annual physical exam Routine adult health maintenance from Last 3 Months or Most Recently Relevant to Health Maintenance Results * HEPATITIS C ANTIBODY (06/05/2020 8:03 AM CDT) HEPATITIS C AB NON-REACTI VE NON-REACT GIDEON 06/06/2020 6:40 PM CDT [facility] Comment: ANTIBODIES TO HCV NOT DETECTED. DOES NOT EXCLUDE THE POSSIBILITY OF EXPOSURE TO HCV. 06/05/2020 8:03 AM CDT us Bethel Kruse MD LABORATORY Final Result [facility] [address] [place] [address], [id number] from Last 3 Months or Most Recently Relevant to Health Maintenance Insurance [employer] Care Teams Automotive Porter Relationship Specialty Start Date End Date Bethel Kruse MD [address] [facility] [address] [place] [address] PCP - General INTERNAL MEDICINE 06/05/20
--- OUTSIDE RECORDS SUMMARY | 2024-05-05 06:29 | XMS_ITS | Encounter Summary ---
Author Organization [facility] Address [facility] [place] [address] Care Team Providers Care Financial Reporting Specialist Name Role Phone Bethel Kruse MD Primary Care Provider [phone] Encounter Details Date Type Department Care Team (Latest Contact Info) Description 12/10/2021 Signadyne Message [facility] Multispecialty Care - [place] [address] [address] [place], [place] [id number] [place], [facility] Provider Annual Physical Appointment Social History Tobacco Use Types Packs/Day Years [...] documented as of this encounter Care Teams Financial Reporting Specialist Relationship Specialty Start Date End Date Bethel Kruse MD [address] [facility] [address] [place] [address] PCP - General INTERNAL MEDICINE 06/05/20 documented as of this encounter
--- OUTSIDE RECORDS SUMMARY | 2024-05-05 06:29 | XMS_ITS | Encounter Summary ---
Author Organization [facility] Address [facility] [place] [address] Care Team Providers Care Computer Graphics Illustrator Name Role Phone Bethel Kruse MD Primary Care Provider [phone] Encounter Details Date Type Department Care Team (Latest Contact Info) Description 01/12/2022 On[employer]k Software Message Enc [facility] Multispecialty Care - [place] [address] [address] [address] [place], [place] [id number] [place], [facility] Provider Physical appointment Due Social History Tobacco Use Types Packs/Day Years [...] documented as of this encounter Care Teams Computer Graphics Illustrator Relationship Specialty Start Date End Date Bethel Kruse MD [address] [facility] [address] [place] [address] PCP - General INTERNAL MEDICINE 06/05/20 documented as of this encounter
--- OUTSIDE RECORDS SUMMARY | 2024-05-05 06:29 | XMS_ITS | Clinical Summary ---
Author Organization [facility] Address [address] [place] [address] Care Team Providers Care Primary Care Nurse Practitioner Name Role Phone Rigoberto Velazco MD Primary Care Provider [phone] Allergies Active Allergy Reactions Criticality Noted Date [...] work-up done here was normal. Started on Uvwkc-vdj-znkzce Lo per PMD in 02/2011, then changed to Byxsc-sve-ftuiaq in 04/2011 for insufficient control of menses. 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
--- OUTSIDE RECORDS SUMMARY | 2024-05-05 06:29 | XMS_ITS | Encounter Summary ---
Author Organization [facility] Address [facility] [place] [address] Care Team Providers Care Parent Aide Name Role Phone Bethel Kruse MD Primary Care Provider [phone] Encounter Details Date Type Department Care Team (Late st Contact Info) Description 06/19/2020 SocialChorushart Message Enc [facility] Multispecialty Care - [place] [address] [address] [address] [place], [place] [id number] [place] [address] [place] [address] [address] [place] [address] RE:labs Social History Tobacco Use Types Packs/Day Years [...] on file Sexual Orientation Not on file COVID-19 Exposure Response Date Recorded In the last month, have you been in contact with someone who was confirmed or suspected to have Coronavirus / COVID-19? No / Unsure 06/05/2020 7:09 AM CDT documented as of this encounter Plan of Treatment Not on file documented as of this encounter Visit Diagnoses Not on filedocumented in this encounter Additional Health Concerns Assessment Noted Time PHQ-9 Depression Total Score: 1 06/06/19 21 8:31 AM CDT documented as of this encounter Care Teams Parent Aide Relationship Specialty Start Date End Date Bethel Kruse MD [address] [address] PCP - General INTERNAL MEDICINE 06/05/20 documented as of this encounter
[2024-05-05] MEDS: LACTATED RINGERS 1,000 ML 125 ML IV CONT (07:15)
[2024-05-05] MEDS: ceFAZolin 2 GM/D5W 50 ML 2 GM/50 ML BAG IVPB (07:15)
[2024-05-05 07:30] LABS: Basophils Percent Auto 0.2 % (0.2-1.2); Eosinophils Absolute Auto 0.1 K/mm3 (0-0.3); Hematocrit 41.1 % (37.0-47.0); Immature Granulocyte Absolute 0.06 K/mm3 (0.00-0.031); Immature Granulocyte Percent A 0.5 % (0-0.5); Lymphocytes Absolute Auto 1.81 K/mm3 (0.9-3.2); Lymphocytes Percent Auto 15.8 % (18.3-44.2); Mean Corpuscular HGB Conc 31.6 g/dl (32-36); Mean Corpuscular Hemoglobin 26.1 pg (26-34); Mean Corpuscular Volume 82.5 fl (80-100); Mean Platelet Volume 12.2 fl (7.4-10.4); Monocytes Absolute Auto 0.9 K/mm3 (0.1-0.6); Monocytes Percent Auto 7.7 % (2.6-8.5); Neutrophils Absolute Auto 8.6 K/mm3 (1.3-6.7); Neutrophils Percent Auto 74.8 % (45.5-73.1); Platelet Count Result 264 k/mm3 (150-375); Red Blood Count 4.98 M/mm3 (4.2-5.4); Red Cell Distribution Width 16.9 % (11.5-14.5); White Blood Count 11.5 K/mm3 (4.5-10.0)
[2024-05-05 08:22] LABS: HIV 1/2 Ab P24 Ag Result Negative (Negative)
[2024-05-05 08:50] LABS: Syphilis IgG/IgM Antibody Negative (Negative)
[2024-05-05] MEDS: OXYTOCIN 30 UNITS/NS 500 ML 30 UNITS/500 ML BAG IV CONT (09:36)
--- NOTE | 2024-05-05 11:14 | PM.IMHP ---
H&P: HPI History of Present Illness Date/Time: 05/05/24 11:14 Chief Complaint: Induction of labor Narrative: Vane is a 28yo @ 39.0wks who presents for elective IOL as she was found to be 5cm on 05/02/24 in office and is GBS positive. She reports good movement. No VB or LOF. Her is complicated by: - Elevated 1 hour; normal 3 hour glucose - GBS positive will need abx in labor Review of Systems Constitutional: Constitutional: Denies chills, Denies fever(s) and Denies headache(s) Eyes: Eyes: Denies change in vision ENT: Denies headache(s) Cardiovascular: Cardiovascular: Denies chest pain and Denies dyspnea Respiratory: Respiratory: Denies dyspnea Genitourinary: Genitourinary: Denies abnormal vaginal bleeding and Denies vaginal discharge Neurologic: Denies headache(s) Psychiatric: Psychiatric: Denies anxiety and Denies depression PMFSH Past Medical History Medical History Suppression of menses History of vaginal delivery Anemia Surgical History Surgical History Likely teeth removed Family History Family History Grandparent Carcinoma of colon Cerebrovascular accident Father Hypertension Social History Social History Smoking status: Never smoker Second hand tobacco smoke exposure: No Alcohol intake: former Drinks per week: 2 Alcohol use details: wine /beer Substance use: never Substance use type: does not use Do You Feel Safe in your Home?: Yes Lack of Transportation: No Lack of Food: Never True Current Housing: I Have Housing Concerned About Future Housing: No Difficulty Paying Gas/Electric Bills: No Difficulty Paying for Meds: No Currently Unemployed: No Education: Master's Degree or Higher Difficulty w/ Childcare or Family Care: No Living arrangements: with family Additional living arrangements comments: Occupation/Education: 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 Gender identity (if verbalized by the patient): Female Sexual Orientation (if Verbalized by the Patient): Straight or Heterosexual Spiritual care concerns: No Agree to blood products: Yes Meds Home Medications and Allergies Home Medications ?Medication ?Instructions ?Recorded ?Confirmed ?Type vits no.126-ferrous fum tablet PO 09/27/23 05/02/24 History 28 mg iron-folic acid 800 mcg tablet (Classic ) ferrous sulfate 325 mg (65 mg 325 mg PO DAILY 03/14/24 05/02/24 History iron) tablet (Feosol) Allergies Allergy/AdvReac Type Severity Reaction Status Date / Time mushroom Allergy Unknown Unknown Verified 05/05/24 07:36 Penicillins Allergy Rash Verified 05/05/24 07:36 Sulfa (Sulfonamide Allergy Unknown Verified 05/05/24 07:36 Antibiotics) Vital Signs Vital Signs - 24 hr 05/05/24 07:21 05/05/24 07:28 05/05/24 07:30 Pulse Rate 94 95 Blood Pressure 127/83 128/91 H Oxygen Delivery Room Air 05/05/24 07:45 05/05/24 08:00 05/05/24 08:15 Pulse Rate 94 99 87 Blood Pressure 119/80 118/82 123/73 Oxygen Delivery 05/05/24 08:30 05/05/24 08:46 05/05/24 09:00 Pulse Rate 102 H 91 83 Blood Pressure 128/86 127/86 115/83 Oxygen Delivery 05/05/24 09:15 05/05/24 09:31 05/05/24 09:45 Pulse Rate 70 86 79 Blood Pressure 120/80 117/80 129/78 Oxygen Delivery 05/05/24 10:01 05/05/24 10:15 05/05/24 10:31 Pulse Rate 84 70 86 Blood Pressure 130/79 120/80 122/67 Oxygen Delivery 05/05/24 10:45 05/05/24 11:00 Pulse Rate 68 83 Blood Pressure 122/92 H 116/81 Oxygen Delivery Exam Const: General: cooperative, healthy appearing, comfortable and no acute distress Orientation/consciousness: patient oriented x3 Resp: Effort & Inspection: normal respiratory effort Cardio: Rate: regular rate GI: GI Palp: No abdominal tenderness : Other: FHT's: 130's/ mod guerline/ + accels/ no decels - cat 1 TOCO: ctxs q2-3min Cervix: 5/70/-1 Membranes: AROM, clear 1122am Presentation: cephalic Skin: General skin exam: normal color Neuro: General: patient oriented x3 Extrem: General: normal to inspection Psych: Appearance: grossly normal Affect: normal affect Attitude: cooperative H&P: Results Labs Labs: Short CBC 05/05/24 Range/Units 07:20 WBC 11.5 H (4.5-10.0) K/mm3 Hgb 13.0 (12.0-15.0) g/dL Hct 41.1 (37.0-47.0) % Plt Count 264 (150-375) k/mm3 Assessment and Plan Assessment and plan (1) Encounter for induction of labor: Code(s): Z34.90 - Encounter for supervision of normal , unspecified, unspecified trimester Status: Acute Plan - Pt has be advanced cervical dilation and is GBS positive at 39wks - Ancef 2g IV once @ 0715 - AROM clear 1120 - Continuous monitoring currently reassuring - Anesthesia consult PRN pain
--- NOTE | 2024-05-05 12:35 | PM.OBPRVD ---
OB - Vaginal Delivery Note Procedure Delivery date: 05/05/24 Events: Elective Induction of Labor and Positive Group B Strep (GBS) Induction method: Per Pitocin Protocol Delivery augmentation: Rupture of Membranes Delivery monitor: External FHT and External Uterine Route of delivery: Episiotomy description: None Laceration Description: Periurethral Delivery repair: vicryl Specimen: Yes Quantitative Blood Loss (ml): 50 Anesthesia type: Local (5cc of 1% lidocaine plain) Disposition: Floor Complications: No immediate complications [place] Baby Date of : 05/05/24 Time of : 12:14 Gestational Age by Date: 39 (.0) gender: Female presentation: vertex position: Left Occiput Anterior Placenta delivery description: Expressed Cord Vessel Description: 3 Vessels score one minute: 9 score five minutes: 10 Narrative: Vane rapidly progressed from 5 cm to completely dilated after artificial rupture membranes. She was examined prior to epidural and was found to be 9.5 cm and then declined epidural. She progressed to completely dilated and pushed for approximately 5 minutes with good maternal effort and delivered the head over an intact perineum. No nuchal cord was palpated. She easily delivered the 's shoulders and body without complication. The was then immediately placed skin to skin and she had spontaneous cry. Delayed cord clamping was performed. The umbilical cord was then doubly clamped and cut. A segment of cord was collected for cord gases. The remaining cord blood was collected for typing. With Pitocin running and gentle downward traction on the cord, the placenta delivered without complication. her uterus was firm with minimal bleeding. She was examined and a small periurethral laceration was identified and was noted to be bleeding. She was anesthetized with 1% lidocaine and a figure of 8 using 3-0 Vicryl was placed. The laceration was well approximated and good hemostasis was noted. Her fundus remained firm with minimal bleeding. Sponge, lap, instrument, and needle counts were correct at the end of the procedure. Mom and baby were left bonding in the birthing suite in stable condition.
[2024-05-05] MEDS: IBUPROFEN 600 MG TABLET PO (19:20)
[2024-05-06 04:20] VITALS: BP 109/72; PULSE 62; RESP 18; TEMP 36.5
[2024-05-06] MEDS: IBUPROFEN 600 MG TABLET PO ×2 (04:20→20:48)
[2024-05-06 05:25] LABS: Hematocrit 35.7 % (37.0-47.0); Hemoglobin 11.1 g/dL (12.0-15.0); Mean Corpuscular HGB Conc 31.1 g/dl (32-36); Mean Corpuscular Hemoglobin 25.8 pg (26-34); Mean Corpuscular Volume 82.8 fl (80-100); Mean Platelet Volume 12.1 fl (7.4-10.4); Platelet Count Result 232 k/mm3 (150-375); Red Blood Count 4.31 M/mm3 (4.2-5.4); White Blood Count 16.2 K/mm3 (4.5-10.0)
[2024-05-06] MEDS: MULTIVIT/MIN/PREN/FOL AC/IRON TABLET 1 TAB PO (07:50)
[2024-05-06] MEDS: DOCUSATE SODIUM 100 MG CAPSULE PO (07:50)
[2024-05-06 08:05] VITALS: BP 110/79; PULSE 73; RESP 18; TEMP 36.2; O2SAT 97
--- NOTE | 2024-05-06 08:43 | PC.NURSE ---
Patient instructed on viewing the discharge video Mother & Baby Care, The First Two Weeks . Patient was given the opportunity and encouraged to ask questions. Patient verbalized understanding of information shared and has been given the mother/baby guide for home reference.
--- NOTE | 2024-05-06 12:00 | PM.OBPNVD ---
OB - PN: Subj Subjective Date/time seen: 05/06/24 12:30 Narrative: PPD#1 Vane reports doing well today. 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 Her pain is controlled. She is tolerating regular diet, voiding, passing gas, and ambulating without issues. She is breast feeding. OB - PN: Obj Data Labs 05/06/24 04:14 Labs: Laboratory Results - last 24 hr 05/05/24 07:20 WBC 11.5 H RBC 4.98 Hgb 13.0 Hct 41.1 MCV 82.5 MCH 26.1 MCHC 31.6 L RDW 16.9 H Plt Count 264 MPV 12.2 H Immature Gran % (Auto) 0.5 Neut % (Auto) 74.8 H Lymph % (Auto) 15.8 L [place] % (Auto) 7.7 Eos % (Auto) 1.0 Baso % (Auto) 0.2 Lymph # (Auto) 1.81 [place] # (Auto) 0.9 H Eos # (Auto) 0.1 Baso # (Auto) 0.0 Abs Immat Gran (auto) 0.06 H Absolute Neuts (auto) 8.6 H Absolute Nucleated RBC 0.000 Nucleated RBC % 0.0 Syphilis IgG/IgM Ab Negative HIV 1&2 Ab/P24 Ag 4thGn Negative Blood Type A Positive Antibody Screen Negative OB - PN A/P Assessment and Plan (1) Normal vaginal delivery of second : Code(s): O80 - Encounter for full-term uncomplicated delivery Status: Acute Plan day: 1 Plan: routine care and discharge home (tomorrow) Comments: - PO pain meds - Regular diet - Ambulation and hydration encouraged - Continue putting baby to breast q2-3hr Time Spent With Patient Time: Total time spent is greater than 50% in coordination of care (as documented) at patient's floor/unit and/or counseling patient: Review of Systems Constitutional: Constitutional: Denies chills, Denies fever(s) and Denies headache(s) Eyes: Eyes: Denies change in vision ENT: Denies dizziness and Denies headache(s) Cardiovascular: Cardiovascular: Denies chest pain, Denies palpitations and Denies dyspnea Respiratory: Respiratory: Denies cough and Denies dyspnea Gastrointestinal: Gastrointestinal: Denies nausea and Denies vomiting Neurologic: Denies dizziness and Denies headache(s) Endocrine: Endocrine: Denies palpitations Exam Const: General: cooperative, comfortable and no acute distress Orientation/consciousness: patient oriented x3 Resp: Effort & Inspection: normal respiratory effort Auscultation: clear to auscultation bilaterally Cardio: Rate: regular rate GI: Inspection: non-distended GI Palp: No abdominal tenderness and Yes Soft to palpation Auscultation: normal bowel sounds : Other: fundus firm Skin: General skin exam: normal color Neuro: General: patient oriented x3 Extrem: General: normal to inspection Psych: Appearance: grossly normal Affect: normal affect Attitude: cooperative
[2024-05-06 12:47] VITALS: BP 119/86; PULSE 78; RESP 16; TEMP 36.6; O2SAT 98
--- NOTE | 2024-05-06 18:38 | PC.NURSE ---
1650.Met with patient to assess and discuss needs related to feeding. Mother states it is her intention to combo feed. Encouraged mother to breastfeed infant 8-12 times in 24 hours (approximately every 2-3 hours), watching for early feeding cues. If infant is sleepy, unwrap and place baby skin to skin. Discussed signs that is effectively , i.e. sufficient voids and stools, jaundice within normal limits, <10% weight loss from . Infant is currently down 3.5% weight loss. Mom reports she can hear infant swallowing and pumps when is not nursing long enough. She is using a nipple shield per her preference, she reports she used one with her first child and it really helped her and she wanted to use one again with this baby. She reports she likes to use for the first week . is currently feeding small short frequent feeds throughout the day. Mother educated on milk production, supply and demand, and expectations for in the immediate period. Encouraged feeding on demand and feeding durations of 15 minutes or greater. Discussed breast/nipple care with good hand hygiene, signs of a correct latch, listening for infant swallows and documenting feedings on the feeding sheet. Mother instructed to call for assistance if infant will not feed every 3 hours, if there is discomfort with , or if mother has any other questions or concerns. resources provided including the Mom and Baby Guide and name/number on communication board. Mother verbalized understanding. Updated patient?s primary RN with education provided.?
[2024-05-06 20:00] VITALS: BP 131/83; PULSE 74; RESP 16; TEMP 36.9; O2SAT 100
--- NOTE | 2024-05-07 06:46 | PM.OBDSVD ---
DS: Admitting Diagnosis Discharge Date 05/07/24 Admitting Diagnosis Elective induction of labor GBS positive Advanced cervical dilation DS: Discharge Diagnosis Discharge Diagnosis (1) Normal vaginal delivery of second : Code(s): O80 - Encounter for full-term uncomplicated delivery Status: Acute OB - DS: Summary OB Procedures : Ultrasound OB Procedures Intrapartum: Spontaneous Vag Delivery OB Procedures: : None Peripartum Data Infant Delivery Method: Natural Vaginal Laceration Description: Periurethral Episiotomy description: None complications: none 1: Gender: Female Disposition of : home Status at Discharge Functional status at discharge: independent ambulation Overall status at discharge: patient is back to baseline Time Spent with Patient Time attestation: Total time spent providing and/or coordinating discharge services: Exam Const: General: cooperative, healthy appearing, comfortable and no acute distress Orientation/consciousness: patient oriented x3 Resp: Effort & Inspection: normal respiratory effort Auscultation: clear to auscultation bilaterally Cardio: Rate: regular rate GI: Inspection: non-distended GI Palp: No abdominal tenderness and Yes Soft to palpation Auscultation: normal bowel sounds : Other: fundus firm Skin: General skin exam: normal color Neuro: General: patient oriented x3 Extrem: General: normal to inspection Psych: Appearance: grossly normal Affect: normal affect Attitude: cooperative DS: Data Data Completed and Pending Pending studies at discharge: Pending at discharge 05/05/24 14:37 Surgical [PTH] Routine Labs on day of discharge: Labs from last 24 hours 05/06/24 04:14 WBC 16.2 H RBC 4.31 Hgb 11.1 L Hct 35.7 L MCV 82.8 MCH 25.8 L MCHC 31.1 L RDW 17.0 H Plt Count 232 MPV 12.1 H Discharge Plan Discharge Attending physician on discharge: Ariela Calvo Discharging Clinician: Ariela Calvo Anticipated Discharge Date/Time: 05/07/24 11:00 Patient Disposition: Home, Self-Care Activity: may shower and pelvic rest Diet: regular Patient Instructions: Vaginal Delivery (DC) Patient Language: Ma[place] Stand Alone Forms: General Discharge Information Follow-up/Referrals: Ariela Calvo MD [Physician] - 4 Weeks Discharge Medications: New acetaminophen 325 mg Tablet 650 mg PO Q6H PRN (Reason: Mild Pain (1-3) Or Headache) Qty: 60 0RF docusate sodium 100 mg Capsule 100 mg PO BID PRN (Reason: Constipation) Qty: 90 0RF ibuprofen 600 mg Tablet 600 mg PO Q6H PRN (Reason: Cramping) Qty: 40 0RF Continued Classic 28 mg iron- 800 mcg tablet PO ferrous sulfate [Feosol] 325 mg (65 mg iron) tablet 325 mg PO DAILY Date of admission: 05/05/24 06:23 Primary Care Provider: PHYSICIAN,[employer] Admitting Provider: Ariela Calvo Attending physician on admission: Ariela Calvo Condition: Stable
[2024-05-07 07:45] VITALS: BP 108/71; PULSE 75; RESP 18; TEMP 36.4; O2SAT 98
[2024-05-07] MEDS: MULTIVIT/MIN/PREN/FOL AC/IRON TABLET 1 TAB PO (08:06)
[2024-05-07] MEDS: IBUPROFEN 600 MG TABLET PO (08:06)
--- NOTE | 2024-05-07 10:45 | PC.NURSE ---
Mother verbalizes she is able to independently latch with appropriate positioning and alignment. She denies any nipple discomfort and is responsively . Nipple shield is being used for feedings (mom is familiar with nipple shield r/t using it with her prior child and is familiar with weening from nipple shield). Mother is familiar with breast pump and will be pumping once she is home, when needed. Dr. Wang would like parents to supplement with minimum of 20cc formula after each feeding r/t weight loss >8%. Parents state understanding.
[2024-05-10 11:12] VITALS: BP 130/82; PULSE 80; RESP 18; TEMP 36.6; O2SAT 100
== END 2024-05-07 13:07 | disposition home or self-care (01) | DRG 807 ==
LOC: ANHLDR 12:41 → ANHOB2 15:50
PROVIDERS: Admitting Provider Obstetrics & Gynecology; Visit Provider Obstetrics & Gynecology
DX: O99.824 Streptococcus B carrier state complicating childbirth (principal); Z37.0 Single live birth; O71.82 Other specified trauma to perineum and vulva; Z3A.39 39 weeks gestation of pregnancy
CPT/HCPCS: 36415; 85025; 85027; 86593; 86703; 86850; 86900; 86901; 88307; A9270; G0432; J0690; J2590; J2795; J7120